=== PATIENT | male | born 1970 | race Caucasian/White ===

== ENCOUNTER 2016-04-22 13:25 | Emergency (ER) | payer SELFPAY ==
[~2016-04-22] VITALS: Ht 177.8 cm; Wt 89.9 kg
[2016-04-22 13:27] VITALS: TEMP 36.8; Ht 177.8 cm; Wt 89.9 kg
[2016-04-22 14:04] VITALS: O2SAT 98
[2016-04-22] MEDS ORDERED: ASPIRIN 81 MG CHEW PO STA (14:34)
[2016-04-22] MEDS ORDERED: ONDANSETRON INJ 2 MG/ML 2 ML VIAL IV STA (14:34)
[2016-04-22] MEDS ORDERED: SODIUM CHLORIDE 0.9% 1000ML 1,000 ML IV STA (14:34)
[2016-04-22 14:43] LABS: BASO % 0.3 %; BASO ABS # 0.01 K/uL (0-0.2); COMPLETE YES; EOS % 0.3 %; HEMATOCRIT 37.9 % (42-52); LYMPH % 20.9 %; LYMPH ABS # 0.68 K/uL (1.2-3.4); MEAN CELL VOLUME 84.6 fL (80-100); MEAN CORPUSCULAR HEMOGLOBIN 30.8 pg (25-34); MEAN CORPUSCULAR HGB CONC 36.4 g/dl (32-36); MEAN PLATELET VOLUME 11.6 fL (7.4-10.4); MONO % 9.2 %; NEUT % 69.3 %; PLATELET COUNT 103 K/uL (130-400); RED BLOOD COUNT 4.48 M/uL (4.7-6.1); WHITE BLOOD COUNT 3.26 K/uL (4.8-10.8)
[2016-04-22] MEDS ORDERED: MELO7.5T5 PO (14:43)
[2016-04-22] MEDS: NITROGLYCERIN 0.4 MG SL PER TAB CHARGE SL PRN ×3 (14:46→15:00)
--- NOTE | 2016-04-22 14:59 | DIAGNOSTIC IMAGING REPORT ---
CHEST ONE VIEW PORTABLE CLINICAL HISTORY: Chest pain. Arm pain. COMPARISON STUDY: No previous studies for comparison. FINDINGS: Lung volumes are normal. Lungs are clear. There is no pneumothorax or pleural effusion. Pulmonary vascularity is normal. Cardiac size is normal. IMPRESSION: No acute cardiopulmonary findings. Electronically signed by: Sonu Moser M.D. 04/22/2016 2:57 PM Dictated Date/Time: 04/22/2016 2:57 PM
[2016-04-22 15:03] LABS: BUN/CREATININE RATIO 14.3 (10-20); CALCIUM 8.8 mg/dl (8.5-10.1); CREATININE 1.2 mg/dl (0.60-1.40); POTASSIUM 3.6 mmol/L (3.5-5.1)
[2016-04-22] MEDS ORDERED: MoRPHine SULFATE 4 MG/ML 1 ML CARP\\VIAL IV STA (15:07)
[2016-04-22 15:08] LABS: CKMB/CK RATIO 0.9 (0-3.0)
--- NOTE | 2016-04-22 15:59 | EMERGENCY ROOM VISIT NOTE ---
ED Visit Note First contact with patient: 13:56 This Patient was discussed with the physician sociology research assistant, Raul Kamara PA-C. The pertinent historical and physical exam findings were confirmed. I agree with the studies ordered and with the interpretations of these studies. I agree with the disposition and care plan.
[2016-04-22 16:15] VITALS: BP 128/91; PULSE 71; O2SAT 100
--- NOTE | 2016-04-23 10:40 | EMERGENCY ROOM VISIT NOTE ---
ED Visit Note First contact with patient: 13:56 Chief Complaint: Chest pain. History of Present Illness: Mr. Zamudio is a 45 year-old white male who ambulates into the ED accompanied by female friend complaining of left sided chest pain. Historically patient reports he has no history of coronary artery disease and his only risk factor is tobacco use. He also denies any family history of coronary artery disease. Patient reports a gradual onset of left-sided chest pain that started approximately 2 weeks ago. He reports the pain has been constant and then last night approximately 14 hours ago his pain increased in intensity. He reports at rest his pain went from a level of 2/10 to 7/10. Just left of the mid sternal border. He describes his pain as an achy sensation. Currently his pain is still on 7/10. He denies radiation of the pain. He has not identified any aggravating or alleviating factors related to the pain. He has not taken any medications for his discomfort prior to arrival at the hospital. He does report earlier in the week he took 1 or 2 doses of ibuprofen without relief of discomfort. Associated with his pain he reports he feels short of breath, he has paresthesias in the right upper extremity and he has been nauseated but has not vomited. Additionally it was noted that when I pushed on his chest in the area of his pain he reports the pain then radiated down the left upper extremity. Once I was not palpating the pain resolved in the extremity. Additionally patient complained of a left-sided headache that started approximately 12 hours ago but outside the initial increase of his chest pain last night. Since that time the pain has been constant. He describes it as an achy sensation over the left temporal parietal area. He does not rates this discomfort. The pain is nonradiating. He has not identified any aggravating or alleviating factors related to the pain. Associated with his pain he reports he has a sensation that his "lips are sliding off his face". Patient denies fevers, chills, sweats, skin eruptions, skin color changes, upper respiratory tract symptoms, wheezing, cough, palpitations, orthopnea, dependent edema, previous clots, claudication, cramping, recent surgery/ inactivity/extended travel, abdominal pain, diarrhea, constipation, rectal bleeding, black/tarry stools, urinary symptoms, back/flank pain. Review of Systems: As noted above in history of present illness. All body systems were reviewed and found to be negative as noted above. Past Medical History: HIV positive, bronchitis, gastric ulcers. Current Medications: Mobic. Allergies to Medications: Patient denies. Social History: Patient is not employed; he feels safe in his home environment; he admits to tobacco use and denies alcohol use. Physical Examination: Vital Signs: Date Time Temp Pulse Resp B/P Pulse Ox O2 Delivery O2 Flow Rate FiO2 04/22/16 16:15 71 20 128/91 100 04/22/16 15:20 69 18 110/84 98 Room Air 04/22/16 15:03 76 14 118/81 96 Room Air 04/22/16 14:58 80 14 110/84 94 Room Air 04/22/16 14:55 83 18 109/77 95 Room Air 04/22/16 14:52 84 12 115/83 94 Room Air 04/22/16 14:49 86 12 109/82 94 Room Air 04/22/16 14:40 70 14 113/79 98 Room Air 04/22/16 14:28 80 04/22/16 14:04 98 Room Air 04/22/16 13:27 36.8 88 17 127/92 98 Room Air GENERAL: 45-year-old male in mild distress due to pain, nontoxic-appearing, afebrile and hemodynamically stable. NEUROLOGICAL: Awake, alert and oriented to person, place and time. Answering questions appropriately and following commands. Normal gait. Good hand eye coordination. Cranial nerves II through XII grossly intact. No facial droop. Normal grimace. Able to hold air in his cheeks. Negative pronator drift. 5/5 muscle strength and movements of the shoulder, elbow, forearm and wrist. SKIN: Warm, dry and pink. No soft tissue eruptions or trauma noted. HEENT: Atraumatic and normocephalic. PERRLA. Sclera white and conjunctiva pink. Oral cavity moist and pink. Pharynx is nonerythematous or edematous. Speech normal. No lymphadenopathy. Trachea midline. No jugular venous distention. No carotid bruits. BACK: No tenderness over the bony spine. No CVA tenderness. THORAX: Lungs sounds are clear to auscultation and equal bilaterally with symmetrical chest wall. No wheezing, rales or rhonchi. Mild tenderness with left-sided chest palpation but no bony deformity, bony crepitus or subcutaneous air. HEART: Regular rate and rhythm. No gallops, rubs or murmurs are appreciated. No lifts, heaves or thrills. PMI is not displaced. ABDOMEN: Flat, soft and nontender. Positive bowel sounds in all quadrants. No guarding, rigidity or organomegaly. EXTREMITIES: Moves all extremities well on command and with purpose. All distal neurovascular statuses are intact and equal bilaterally. No dependent edema or calf tenderness/cords. ED Course: Patient is assessed as noted above. Laboratory Testing: Test 04/22/16 14:00 04/22/16 14:40 Range/Units White Blood Count 3.26 4.8-10.8 K/uL Red Blood Count 4.48 4.7-6.1 M/uL Hemoglobin 13.8 14.0-18.0 g/dL Hematocrit 37.9 42-52 % Mean Corpuscular Volume 84.6 80-100 fL Mean Corpuscular Hemoglobin 30.8 25-34 pg Mean Corpuscular Hemoglobin Concent 36.4 32-36 g/dl Platelet Count 103 130-400 K/uL Mean Platelet Volume 11.6 7.4-10.4 fL Neutrophils (%) (Auto) 69.3 % Lymphocytes (%) (Auto) 20.9 % Monocytes (%) (Auto) 9.2 % Eosinophils (%) (Auto) 0.3 % Basophils (%) (Auto) 0.3 % Neutrophils # (Auto) 2.26 1.4-6.5 K/uL Lymphocytes # (Auto) 0.68 1.2-3.4 K/uL Monocytes # (Auto) 0.30 0.11-0.59 K/uL Eosinophils # (Auto) 0.01 0-0.5 K/uL Basophils # (Auto) 0.01 0-0.2 K/uL RDW Standard Deviation 42.4 36.4-46.3 fL RDW Coefficient of Variation 13.8 11.5-14.5 % Immature Granulocyte % (Auto) 0.0 % Immature Granulocyte # (Auto) 0.00 0.00-0.02 K/uL Sodium Level 142 136-145 mmol/L Potassium Level 3.6 3.5-5.1 mmol/L Chloride Level 105 98-107 mmol/L Carbon Dioxide Level 28 21-32 mmol/L Anion Gap 9.0 3-11 mmol/L Blood Urea Nitrogen 17 7-18 mg/dl Creatinine 1.20 0.60-1.40 mg/dl Est Creatinine Clear Calc Drug Dose 86.8 ml/min Estimated GFR () 83.5 Estimated GFR (Non- 72.1 BUN/Creatinine Ratio 14.3 10-20 Random Glucose 92 70-99 mg/dl Calcium Level 8.8 8.5-10.1 mg/dl Total Bilirubin 0.9 0.2-1 mg/dl Direct Bilirubin 0.3 0-0.2 mg/dl Aspartate Amino Transf (AST/SGOT) 42 15-37 U/L Alanine Aminotransferase (ALT/SGPT) 48 12-78 U/L Alkaline Phosphatase 54 45-117 U/L Total Creatine Kinase 91 39-308 U/L Creatine Kinase MB 0.8 0.5-3.6 ng/ml Creatine Kinase MB Ratio 0.9 0-3.0 Total Protein 8.4 6.4-8.2 gm/dl Albumin 4.2 3.4-5.0 gm/dl Lipase 191 73-393 U/L Bedside D-Dimer 186 0-450 ng/mlFEU Bedside Troponin I 0.000 0-0.045 ng/ml Chest X-Ray: Was read by myself and the radiologist showing no acute infiltrates , effusions or pneumothorax. No pulmonary congestion, normal heart silhouette and no bony abnormalities. EKG: Was read by myself and reviewed with Dr. Sellers; shows normal sinus rhythm with a ventricular rate of 77 bpm. Nonspecific T-wave abnormalities but no ST changes indicating ischemia, injury or infarction. Back records reviewed and no previous EKGs were found. Patient was hydrated with normal saline and he received 324 mg of aspirin, a trial of 3 nitroglycerin tablets without success of pain relief and 4 mg of morphine IV. Patient was reassessed multiple times during his stay in the emergency department. Patient's case was reviewed with Dr. Sellers; he independently assessed the patient and we agreed on diagnostic approach, treatment, disposition and plan. Patient was educated about tonight's findings and instructed on his treatment plan; he verbalizes understanding and agreement with this plan. Clinical Impression: Acute chest pain. Left-sided headache. Decision-Making: For his chest pain initially I considered acute coronary syndrome, thoracic aneurysm, pneumothorax, pneumonia, pulmonary embolism, musculoskeletal disease, HIV related syndromes. For his headache I considered CVA, TIA, Painting's palsy and other causes. Disposition: Patient discharged home in stable condition accompanied by his girlfriend; prior to departure he was reassessed and subjectively reported he was pain and symptom-free. Plan: Patient was encouraged to alternate ibuprofen and acetaminophen every 3 hours as needed for pain. Patient was encouraged to rest for the next 2-3 days and avoid strenuous activity and follow-up with family physician. Patient was encouraged return the ED for worsening pain, fevers, worsening sensations of shortness of breath or any new/concerning symptoms
== END 2016-04-22 16:16 | disposition home or self-care (01) ==
LOC: C.EDB 13:27
DX: R07.9 Chest pain, unspecified (principal); R51 Headache; R75 Inconclusive laboratory evidence of human immunodeficiency virus [HIV]; I25.10 Atherosclerotic heart disease of native coronary artery without angina pectoris; F17.200 Nicotine dependence, unspecified, uncomplicated; Z87.11 Personal history of peptic ulcer disease